=== PATIENT | female | born 2000 | race Two or more races ===

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

== ENCOUNTER 2018-06-28 15:46 | Emergency (ER) | payer SELFPAY ==
[~2018-06-28] VITALS: Ht 157.5 cm; Wt 70.5 kg
[2018-06-28 16:01] VITALS: BP 111/58; Ht 157.5 cm; Wt 70.5 kg
[2018-06-28 17:57] LABS: APPEARANCE HAZY (CLEAR); BILIRUBIN 2+ (NEGATIVE); COLOR YELLOW (YELLOW); GLUCOSE NEGATIVE (NEGATIVE); HCG URINE NEGATIVE (NEGATIVE); KETONE NEGATIVE (NEGATIVE); NITRITE NEGATIVE (NEGATIVE); PROTEIN NEGATIVE (NEGATIVE); SPECIFIC GRAVITY 1.005 (1.005-1.020)
[2018-06-28 17:58] LABS: UDS - AMPHET NEGATIVE QUAL (NEGATIVE); UDS - BARB NEGATIVE QUAL (NEGATIVE); UDS - BENZO NEGATIVE QUAL (NEGATIVE); UDS - COCAINE NEGATIVE QUAL (NEGATIVE); UDS - OPIATE NEGATIVE QUAL (NEGATIVE); UDS - PCP NEGATIVE QUAL (NEGATIVE); UDS - THC POSITIVE QUAL (NEGATIVE)
[2018-06-28 17:59] LABS: BACTERIA MODERATE /hpf (NONE SEEN); RED CELLS - URINE 0-5 /hpf (0-5)
== END 2018-06-28 18:05 | disposition home or self-care (01) ==
LOC: D.ER 15:46
PROVIDERS: Family Medicine
DX: N39.0 Urinary tract infection, site not specified (principal)

== ENCOUNTER 2018-07-26 20:09 | Emergency (ER) | payer MEDICAID ==
[~2018-07-26] VITALS: Ht 157.5 cm; Wt 70.5 kg
[2018-07-26 20:12] VITALS: Ht 157.5 cm; Wt 70.5 kg
[2018-07-26 21:41] VITALS: BP 104/67
== END 2018-07-26 21:42 | disposition home or self-care (01) ==
LOC: D.ER 20:09
DX: T78.1XXA Other adverse food reactions, not elsewhere classified, initial encounter (principal); X58.XXXA Exposure to other specified factors, initial encounter; R06.2 Wheezing; L50.9 Urticaria, unspecified

== ENCOUNTER 2018-12-29 13:21 | Emergency (ER) | payer MEDICAID ==
[2018-07-26 20:12] VITALS: BMI 28.4
== END 2018-12-29 14:27 | disposition left against medical advice (07) ==
LOC: D.ER 13:21
DX: N93.9 Abnormal uterine and vaginal bleeding, unspecified (principal)

== ENCOUNTER 2019-09-02 16:31 | Emergency (ER) | payer MEDICAID ==
[~2019-09-02] VITALS: Ht 157.5 cm; Wt 68.2 kg
[2019-09-02 16:59] VITALS: BP 118/70; Ht 157.5 cm; Wt 68.2 kg
== END 2019-09-02 20:55 | disposition left against medical advice (07) ==
LOC: D.ER 16:31
DX: R21 Rash and other nonspecific skin eruption (principal); Z53.21 Procedure and treatment not carried out due to patient leaving prior to being seen by health care provider

== ENCOUNTER 2020-02-22 09:21 | Emergency (ER) | payer MEDICAID ==
[~2020-02-22] VITALS: Ht 157.5 cm; Wt 70.5 kg
[2020-02-22 09:43] VITALS: BP 126/72; Ht 157.5 cm; Wt 70.5 kg
== END 2020-02-22 12:20 | disposition home or self-care (01) ==
LOC: D.ER 09:21
DX: A56.8 Sexually transmitted chlamydial infection of other sites (principal); A54.9 Gonococcal infection, unspecified